=== PATIENT | male | born 1975 | race American Indian/Alaskan Native ===

== ENCOUNTER 2018-06-12 08:55 | Emergency (ER) | payer MEDICARE ==
[2018-06-12 09:05] VITALS: BMI 44.3
--- NOTE | 2018-06-12 09:35 | ED PDOC ---
Arrival/HPI - General Chief Complaint: Lower Extremity Problem/Injury Time Seen by Provider: 06/12/18 09:17 Historian: Patient - History of Present Illness Narrative History of Present Illness (Text): 06/12/18 09:32 42-year-old male presents today with bilateral hip pain and low back pain that is been on and off for the past 3 days. Patient denies any recent trauma or injury. He denies numbness weakness or tingling in the extremities. Patient states he has no pain at this time since he took [id number] medications for pain. Patient denies abdominal pain. No nausea vomiting diarrhea constipation. He denies chest pain or shortness of breath. 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 Past Medical History - Provider Review Nursing Documentation Reviewed: Yes - Travel History Have you recently traveled outside [place] w/in the past 3 mons?: No - Infectious Disease Hx of Infectious Diseases: None - Tetanus Immunization Tetanus Immunization: Unknown - Past Medical History Past Medical History: No Previous - Psychiatric Hx Substance Use: No - Past Surgical History Past Surgical History: No Previous - Anesthesia Hx Anesthesia: No - Suicidal Assessment Feels Threatened In Home Enviroment: No Family/Social History - Physician Review Nursing Documentation Reviewed: Yes Family/Social History: Unknown Family HX Smoking Status: Never Smoked Hx Alcohol Use: No Hx Substance Use: No Hx Substance Use Treatment: No Allergies/Home Meds Allergies/Adverse Reactions: Allergies No Known Allergies Allergy (Verified 08/14/14 11:38) Review of Systems - Review of Systems Constitutional: absent: Fatigue, Fevers Respiratory: absent: SOB, Cough Cardiovascular: absent: Chest Pain, Palpitations Gastrointestinal: absent: Abdominal Pain, Constipation, Diarrhea, Nausea, Vomiting Genitourinary Male: absent: Dysuria, Frequency, Hematuria Musculoskeletal: Arthralgias, Back Pain. absent: Neck Pain Skin: absent: Rash, Pruritis Neurological: absent: Headache, Dizziness Psychiatric: absent: Anxiety, Depression, Suicidal Ideation Physical Exam Vital Signs Reviewed: Yes Vital Signs Temp Pulse Resp BP Pulse Ox 06/12/18 08:55 98.1 F 90 20 164/85 H 96 Temperature: Afebrile Blood Pressure: Hypertensive Pulse: Regular Respiratory Rate: Normal Appearance: Positive for: Well-Appearing, Non-Toxic, Comfortable Pain Distress: None Mental Status: Positive for: Alert and Oriented X 3 - Systems Exam Head: Present: Atraumatic Mouth: Present: Moist Mucous Membranes Neck: Present: Normal Range of Motion Respiratory/Chest: Present: Clear to Auscultation, Good Air Exchange. No: Respiratory Distress, Accessory Muscle Use Cardiovascular: Present: Regular Rate and Rhythm, Normal S1, S2. No: Murmurs Abdomen: No: Tenderness, Distention, Rebound, Guarding Genitourinary Male: Present: Normal External Genitalia, Other (no inguinal adenopathy). No: Erythema Back: Present: Normal Inspection. No: CVA Tenderness, Midline Tenderness, Paraspinal Tenderness, Pain with Leg Raise Upper Extremity: Present: Normal Inspection, Normal ROM Lower Extremity: Present: Normal Inspection, NORMAL PULSES, Normal ROM, Neurovascularly Intact, Capillary Refill < 2 s, Other (pelvis stable; hips non tender bilaterally. no tenderness to groin, no erythema; no edema, sensation and distal pulses intact. no palpable tenderness ). No: CALF TENDERNESS, Tenderness, Erythema, Deformity Neurological: Present: GCS=15, Speech Normal Skin: Present: Warm, Dry, Normal Color. No: Rashes Psychiatric: Present: Alert, Oriented x 3 Medical Decision Making ED Course and Treatment: 06/12/18 09:35 42yr old male presenting with 3 day history of intermittent back and hip pain. no trauma or injury. pt non toxic well appearing; no distress. denies pain currently. xrays of hips bilaterally;FINDINGS: BONES: The pelvic ring is intact. There is no acute displaced fracture or bone destruction. Bone alignment and mineralization are normal. JOINTS: There is symmetric narrowing of bilateral hip joint spaces. There is symmetric periarticular sclerosis in both sacroiliac joints. There is mild osteitis pubis. SOFT TISSUES: Normal. OTHER FINDINGS: None. 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 xray of LS spine;FINDINGS: BONES: There is normal alignment of the lumbar vertebral bodies. There is normal lumbar lordosis. There is no acute fracture, spondylolysis or spondylolisthesis. Bone mineralization is normal. DISC SPACES: The disc heights are maintained. OTHER FINDINGS: None. IMPRESSION: No acute fracture, spondylolysis or spondylolisthesis. pt reassessment; pt is non toxic well appearing; no distress. stable vitals. pt states since laying in the bed the pain has returned slightly; he would like medication in er prior to going home. i discussed all results with patient in depth; advised taking medications as prescribed and f/u with orthopedist within the next 2 days. i advised immediate return if symptoms worsen,persist or if new symptoms develop. Patient verbalizes understanding of discharge instructions and need for immediate followup. all aspects of this case were discussed the attending of record. Impression: back pain, hip pain Motrin every 6 hours as needed for pain Flexeril one tablet every 8 hours as needed for muscle spasms: May cause drowsiness Followup with the orthopedist within the next 2 days Followup with primary care physician within the next 2 days Return if symptoms worsen persist or if new symptoms develop - RAD Interpretation Radiology Orders: 06/12/18 09:25 HIP MIN 5V W/ PELVIS MARYA [RAD] Stat LS SPINE WITH OBL > 18 YRS OLD [RAD] Stat Disposition/Present on Arrival - Present on Arrival Any Indicators Present on Arrival: No History of DVT/PE: No History of Uncontrolled Diabetes: No Urinary Catheter: No History of Decub. Ulcer: No History Surgical Site Infection Following: None - Disposition Have Diagnosis and Disposition been Completed?: Yes Diagnosis: Back pain, Hip pain Disposition: HOME/ ROUTINE Disposition Time: 11:11 Patient Plan: Discharge Patient Problems: Current Active Problems Problem Status Onset Back pain Acute Hip pain Acute Condition: GOOD Discharge Instructions (ExitCare): Hip Pain (DC), Low Back Pain (DC) Additional Instructions: Motrin every 6 hours as needed for pain Flexeril one tablet every 8 hours as needed for muscle spasms: May cause drowsiness Followup with the orthopedist within the next 2 days Followup with primary care physician within the next 2 days Return if symptoms worsen persist or if new symptoms develop Prescriptions: Cyclobenzaprine [Cyclobenzaprine HCl] 10 mg PO Q8 #10 tab Ibuprofen [Motrin] 600 mg PO Q6H PRN #20 tab PRN Reason: pain/fever reduction Referrals: Shawn Galvez MD [Primary Care Provider] - Follow up with primary Sergey Arizmendi MD [Staff Provider] - Follow up with primary Karthik Shukla MD [Staff Provider] - Follow up with primary Forms: [employer] (Telugu), WORK NOTE
--- NOTE | 2018-06-12 10:49 | RAD ---
PROCEDURE: Radiographs of the pelvis and bilateral hips HISTORY: b/l hip pain COMPARISON: None. FINDINGS: BONES: The pelvic ring is intact. There is no acute displaced fracture or bone destruction. Bone alignment and mineralization are normal. JOINTS: There is symmetric narrowing of bilateral hip joint spaces. There is symmetric periarticular sclerosis in both sacroiliac joints. There is mild osteitis pubis. SOFT TISSUES: Normal. OTHER FINDINGS: None. 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
--- NOTE | 2018-06-12 11:02 | RAD ---
Date of service: 06/12/2018 PROCEDURE: Radiographs of the Lumbar Spine. HISTORY: back pain COMPARISON: No prior. FINDINGS: BONES: There is normal alignment of the lumbar vertebral bodies. There is normal lumbar lordosis. There is no acute fracture, spondylolysis or spondylolisthesis. Bone mineralization is normal. DISC SPACES: The disc heights are maintained. OTHER FINDINGS: None. IMPRESSION: No acute fracture, spondylolysis or spondylolisthesis.
[2018-06-12 11:47] VITALS: BP 150/80; PULSE 80; RESP 18; TEMP 98.8; O2SAT 99
== END 2018-06-12 11:44 | disposition home or self-care (01) ==
LOC: ED 08:55
DX: M54.5 Low back pain (principal); M25.551 Pain in right hip; M25.552 Pain in left hip
CPT/HCPCS: 72110; 73523; 96372; 99283; J1885

== ENCOUNTER 2018-09-03 07:30 | Emergency (ER) | payer MEDICARE ==
[2018-09-03 07:49] VITALS: BMI 42.8
[2018-09-03 07:52] VITALS: BP 144/84; PULSE 84; RESP 16; TEMP 98.7; O2SAT 97
--- NOTE | 2018-09-03 08:10 | ED PDOC ---
Arrival/HPI - General Chief Complaint: Eye Problem Time Seen by Provider: 09/03/18 07:57 Historian: Patient - History of Present Illness Narrative History of Present Illness (Text): 09/03/18 08:07 A 43 year old male, with no significant past medical history, presents to the emergency department complaining of right eye redness/itchiness for the past week. Patient reports he went to [facility] for evaluation of symptom, and was prescr ibed eye drops, however has had no relief. Patient denies any vision changes, headache, eye pain, foreign body sensation, any URI symptoms, or any other complaints at this time. Also, patient states he does not wear any glasses/contact lenses. Past Medical History - Provider Review Nursing Documentation Reviewed: Yes - Infectious Disease Hx of Infectious Diseases: None - Tetanus Immunization Tetanus Immunization: Unknown - Past Medical History Past Medical History: No Previous - Cardiac Hx Cardiac Disorders: No - Pulmonary Hx Respiratory Disorders: No - Neurological Hx Neurological Disorder: No - HEENT Hx HEENT Disorder: No - Renal Hx Renal Disorder: No - Endocrine/Metabolic Hx Endocrine Disorders: No - Hematological/Oncological Hx Blood Disorders: No - Integumentary Hx Dermatological Disorder: No - Musculoskeletal/Rheumatological Hx Musculoskeletal Disorders: No - Gastrointestinal Hx Gastrointestinal Disorders: No - Genitourinary/Gynecological Hx Genitourinary Disorders: No - Psychiatric Hx Depression: No Hx Emotional Abuse: No Hx Physical Abuse: No Hx Substance Use: No - Past Surgical History Past Surgical History: No Previous - Anesthesia Hx Anesthesia: No - Suicidal Assessment Feels Threatened In Home Enviroment: No Family/Social History - Physician Review Nursing Documentation Reviewed: Yes Family/Social History: No Known Family HX Smoking Status: Never Smoked Hx Alcohol Use: No Hx Substance Use: No Hx Substance Use Treatment: No Allergies/Home Meds Allergies/Adverse Reactions: Allergies No Known Allergies Allergy (Verified 09/03/18 07:49) Review of Systems - Physician Review All systems were reviewed & negative as marked: Yes - Review of Systems Eyes: Other (right eye redness/itchiness). absent: Vision Changes, Eye Pain Respiratory: absent: SOB, Cough Cardiovascular: absent: Chest Pain Neurological: absent: Headache Physical Exam - Physical Exam Narrative Physical Exam (Text): PE: Gen: NAD, cooperative, well appearing, non-toxic. Head: NCAT. HEENT: EYES: PERRL, EOMI, right eye conjunctiva injected, debris to right eyelashes, midline swelling to upper and lower eyelids, no surrounding erythema, no cellulitic changes. EARS: TMs clear MOUTH: moist MM, posterior pharynx without erythema or exudate, uvula midline. CV: (+) S1S2, RRR, no M/G/R LUNGS: CTA B/L, No W/R/R, good air movement Abd: Soft, NTTP, no guarding, rebound or rigidity. Neuro: AAO x 3, GCS 15, CN 2-12 intact, motor and sensory grossly intact, 5/5 muscle strength B/L UE's and LE's. ext: no cyanosis or edema Vital Signs Reviewed: Yes Vital Signs Temp Pulse Resp BP Pulse Ox 09/03/18 07:51 98.7 F 84 16 144/84 97 Temperature: Afebrile Blood Pressure: Normal Pulse: Regular Respiratory Rate: Normal Appearance: Positive for: Well-Appearing, Non-Toxic, Comfortable Pain Distress: None Mental Status: Positive for: Alert and Oriented X 3 Medical Decision Making ED Course and Treatment: 09/03/18 08:10 Impression: 43 year old male with right eye redness/itchiness. Plan: -- Reassess and disposition Progress Notes: 09/03/18 08:13 Patient prescribed antibiotic drops and to follow-up with PMD/diving instructor. - Scribe Statement The provider has reviewed the documentation as recorded by the Cristiano Sorto Provider Scribe Attestation: All medical record entries made by the Gavinoibjoshua were at my direction and personally dictated by me. I have reviewed the chart and agree that the record accurately reflects my personal performance of the history, physical exam, medical decision making, and the department course for this patient. I have also personally directed, reviewed, and agree with the discharge instructions and disposition. Disposition/Present on Arrival - Present on Arrival Any Indicators Present on Arrival: No History of DVT/PE: No History of Uncontrolled Diabetes: No Urinary Catheter: No History of Decub. Ulcer: No History Surgical Site Infection Following: None - Disposition Have Diagnosis and Disposition been Completed?: Yes Diagnosis: Conjunctivitis Disposition Time: 08:05 Patient Plan: Discharge Discharge Instructions (ExitCare): Conjunctivitis ([place]) (DC) Prescriptions: Polymyxin/Trimethoprim Sulfate [Polytrim Ophth Soln] 1 drop OD Q3H #1 bottle Referrals: Ricci Scott MD [Staff Provider] - Follow up with primary Forms: [employer] (Romansh)
== END 2018-09-03 08:40 | disposition home or self-care (01) ==
LOC: ED 07:30
DX: H10.9 Unspecified conjunctivitis (principal)